=== PATIENT | female | born 1985 | race Caucasian/White ===

== ENCOUNTER 2016-06-29 08:51 | Emergency (ER) | payer MEDICAID, OTHER ==
[2016-06-29] MEDS ORDERED: Bacitracin Oint 15 GM Tube TOP STA (09:19)
[2016-06-29] MEDS ORDERED: Acetaminophen/HYDROcodone 325-5 MG Tab PO ONE (09:19)
--- NOTE | 2016-06-29 09:50 | EDM.PDOC ---
ED HPI BURN/SMOKE INHALATION - General Chief Complaint: Burn Stated Complaint: LEFT HAND BURN-FLAHERTY GREASE Time Seen by Provider: 06/29/16 08:56 Source of Information: Reports: Patient, RN notes reviewed, Significant Other ( Boyfriend) History Limitations: Reports: No limitations - History of Present Illness INITIAL COMMENTS - FREE TEXT/NARRATIVE: The patient states that she was attempting to poor hot flaherty grease into a glass jar that she was holding with her left hand, when some of the hot flaherty grease accidentally spilled over her left MCP joints and some fingers, arounf 08 :30 this morning. She presents with some non-blistering hicks to the dorsal and palmar aspects of her left hand. She is otherwise uninjured. - Related Data Allergies/ADRs: Allergies Allergy/AdvReac Type Severity Reaction Status Date / Time No Known Allergies Allergy Verified 06/29/16 08:59 Home Meds: Home Meds Hydrocodone/Acetaminophen [Whitehall 5-325 Tablet] 1 - 2 tab PO Q8H PRN #8 tablet [Rx] Propranolol [Inderal] 10 mg PO DAILY 06/29/16 [History] Venlafaxine [Effexor] 75 mg PO DAILY 06/29/16 [History] Past Medical History Psychiatric History: Reports: Anxiety - Past Surgical History HEENT Surgical History: Reports: Oral surgery ([place] teeth extraction) Female Surgical History: Reports: section (x 1) Social & Family History - Tobacco Use Smoking Status *Q: Current Every Day Smoker Years of Tobacco use: 1 Packs/Tins Daily: 0.2 - Alcohol Use Alcohol Use History: Yes Alcohol Use Frequency: Socially - Recreational Drug Use Recreational Drug Use: Yes Drug Use in Last 12 Months: No Recreational Drug Type: Reports: Methamphetamine Recreational Drug Use Frequency: Not Used In Over 6 Months - Living Situation & Occupation Living situation: Reports: single, with significant other (Boyfriend), with family (4 kids) Occupation: student ([employer]) ED ROS GENERAL - Review of Systems Review Of Systems: See Below Constitutional: Reports: no symptoms HEENT: Reports: No symptoms Respiratory: Reports: No Symptoms Cardiovascular: Reports: No symptoms Endocrine: Reports: no symptoms GI/Abdominal: Reports: No symptoms : Reports: no symptoms Musculoskeletal: Reports: no symptoms Skin: Reports: no symptoms Neurological: Reports: No Symptoms Psychiatric: Reports: No symptoms Hematologic/Lymphatic: Reports: no symptoms Immunologic: Reports: no symptoms ED EXAM, BURN/SMOKE INHALATION - Physical Exam Exam: See Below Exam Limited By: No limitations General Appearance: alert, WD/WN, mild distress Extremities: other (There is erythema and some swelling to the dorsal aspect of the left second finger, proximal phalanx and dorsal aspect of the left third PIP joint. Additional erythema and swelling to the palmar aspect of the second finger, proximal phalanx and slightly onto the middle phalanx, just distal to the PIP joint. Additional erythema without swelling to the palmar aspect of the left third finger. No blistering.) Course - Vital Signs Last Recorded V/S: Last Vital Signs Temp 36.8 C 06/29/16 09:01 Pulse 85 06/29/16 09:01 Resp 16 06/29/16 10:02 BP 105/80 06/29/16 10:02 Pulse Ox 96 06/29/16 10:02 - Orders/Labs/Meds Meds: Medications Discontinued Medications Generic Name Dose Route Start Last Admin Trade Name Amanda PRN Reason Stop Dose Admin Hydrocodone Bitart/Acetaminophen 2 tab 06/29/16 09:19 06/29/16 09:24 Whitehall 325-5 Mg PO 06/29/16 09:20 2 tab ONETIME ONE Administration Bacitracin 2 gm 06/29/16 09:19 06/29/16 09:25 Bacitracin Oint TOP 06/29/16 09:20 2 gm ONETIME STA Administration - Re-Assessments/Exams Free Text/Narrative Re-Assessment/Exam: 06/29/16 09:45 Clinically, the patient has suffered either superficial or superficial partial thickness hicks to her left hand and fingers. Her wounds were dressed with bacitracin ointment and Xeroform. The dressing should be changed daily. She received 2 tablets of Whitehall here in the ED, and I will e-prescribe some more. She will be discharged home with the bacitracin tube and some Xeroform. Departure - Departure Time of Disposition: 09:46 Disposition: Home, Self-Care 01 Condition: good Clinical Impression: Burn of hand, left, second degree Prescriptions: Hydrocodone/Acetaminophen [Whitehall 5-325 Tablet] 1 - 2 tab PO Q8H PRN #8 tablet PRN Reason: Pain (Severe 7-10) Instructions: Second-Degree Burn Referrals: Sandra Francois CHANGE MANAGEMENT COORDINATOR [Primary Care Provider] - Forms: ED Department Discharge Additional Instructions: You were seen in the emergency room after burning your left hand and fingers with hot flaherty grease. A dressing of bacitracin ointment and Xeroform was applied. Change this dressing daily, after you wash your hands. You may apply ice packs to the dressing, but do not get the dressing wet. Take [id number] ibuprofen 2-3 tablets (400-600 mg) every 8 hours, with food, as needed for pain. Take 1 to 2 tablets of the pain medicine Whitehall up to every 8 hours, as needed for pain not relieved by ibuprofen. If you take Whitehall, do not drive or operate heavy machinery. Whitehall will likely cause constipation, so consider taking a stool softener. Followup with your PCP, Elana Francois, as needed. If any other problems, please do not hesitate to return to the ER.
[2016-06-29 10:13] VITALS: BP 105/80
== END 2016-06-29 10:05 | disposition home or self-care (01) ==
LOC: JD.ED 08:51
DX: T23.202A Burn of second degree of left hand, unspecified site, initial encounter (principal); X12.XXXA Contact with other hot fluids, initial encounter; Y93.89 Activity, other specified; Z79.899 Other long term (current) drug therapy; F17.210 Nicotine dependence, cigarettes, uncomplicated; F41.9 Anxiety disorder, unspecified
CPT/HCPCS: 99283; A9270

== ENCOUNTER → 2019-07-03 | Day surgery (SDC) | payer BC ==
[~2019-07-03] MED LIST: Ketorolac 30 MG/ML SDV ONE; Lactated Ringers 1,000 ML IV SCH; Lidocaine 1% 4 ML ONE; Lidocaine 1% with EPINEPHrine 1:100,000 20 ML MDV ONE; Lidocaine 1%/Sod Bicarbonate in NS 8.4% 1 ML Syringe IDERM PRN; Midazolam 1 MG/ML 2 ML SDV ONE; Ondansetron 4 MG/2 ML SDV ONE; Propofol 200 MG/20 ML SDV ONE; Scopolamine 1.5 MG Transdermal Patch TOP PRN; Sodium Chloride 0.9% 10 ML Syringe FLUSH PRN; fentaNYL 100 MCG/2 ML SDV IVPUSH PRN; fentaNYL 250 MCG/5 ML SDV ONE
--- NOTE | 2019-07-03 09:33 | PCM.OPNOTE ---
- General Post-Op/Procedure Note Date of Surgery/Procedure: 07/03/19 Operative Procedure(s): Loop electroscurgical excision procedure Findings: Decreased Lugol's uptake at the 12 and 6 o'clock position with excision of the entirety of the transformation zone with a top-hat vision of the cervical canal. IUD strings were visualized but cut during the procedure in order to complete the procedure. Pre Op Diagnosis: STEVEN 2-3 on colposcopy Post-Op Diagnosis: Same Anesthesia Technique: MAC Primary Surgeon: Delta Flynn Anesthesia Provider: Ilan Hernández Pathology: Superior portion of cervical transformation zone, inferior portion of cervical transformation zone and Top-Hat portion of cervical canal Fluid Replacement, Intraop: 1,800 Output, Urine Amount: 0 EBL in mLs: 200 Complications: Unanticipated bleeding from arterial vessel in the cervix leading to increased blood loss Condition: Good Free Text/Narrative:: The patient was Procedure in detail: The patient was seen in the preoperative holding area and the consent forms were reviewed. Discussed that plan was for colposcopy with loop electrosurgical excision procedure with risks including bleeding, infection , injury to surrounding structures and possibly damage to IUD strings including possible cutting of the strings. Patient states understanding and was in agreement with the consent form. The patient was taken back to operating room #2 and placed in dorsal lithotomy position using yellowfin stirrups. She was given MAC anesthesia. The speculum was placed and suction tubing connected to the outlet on the speculum. The cervix was visualized with the IUD strings visualized at the 9 and 10 o'clock position. The cervix was cleansed using Lugol's iodine solution with decreased uptake of the Lugol's at the 12 and 6 o'clock position. One of the IUD strings was protected by placing it through the protective sheath of the spinal needle. A paracervical block was administered with use of 1% lidocaine with epinephrine at the 2, 4, 8 and 10 o'clock position on the base of the cervix. The loop electrode settings were set to 30 majano for both cut and coagulation. The loop electrode was then passed from the superior to midline portion of the cervix as far as the electrode could go until it hit the protective sheath of the spinal needle. This was repeated on the patient's left side of the cervix, right side of the cervix and then from the inferior to the midline portion. After multiple attempts to remove the cervical tissue it was unable to get a complete cut of the cervical portion with the protective spinal needle sheath in place. Decision was made to complete the procedure by cutting the IUD strings. The superior portion of the cervix and transformation zone was removed and sent for specimen. The inferior portion of the cervix and transformation zone was sent as an additional specimen. An additional Top-Hat was performed of the cervical canal due to the findings being present on the endocervical curettage on previous colposcopy. The surgical bed was then coagulated using the ball and blade electrode. During coagulation the settings were increased to 40 W for the cut and coagulation settings. On evaluation of the cervix there is continued amount of bleeding with more bleeding normal than anticipated and at the 11 o'clock position there was noted to be an arterial bleed that was coagulated using the blade electrode. Bleeding was stopped at this time and the surgical bed was hemostatic. The surgical bed was coated with Monsel solution for additional hemostasis. The procedure was completed at this time. The patient tolerated the procedure well. The patient was awoken and taken to the recovery room.
--- NOTE | 2019-07-03 09:55 | PCM.PREANE ---
Preanesthetic Assessment - Anesthesia/Transfusion/Family Hx Anesthesia History: Prior Anesthesia Without Reaction Family History of Anesthesia Reaction: No Intubation History: Unknown - Review of Systems General: No Symptoms Pulmonary: No Symptoms Cardiovascular: No Symptoms Gastrointestinal: No Symptoms Neurological: No Symptoms Other: Reports: None - Physical Assessment NPO Status Date: 07/02/19 NPO Status Time: 21:30 Vital Signs: Last Vital Signs Temp 96.9 F 07/03/19 09:40 Pulse 86 07/03/19 09:40 Resp 15 07/03/19 09:40 BP 110/79 07/03/19 09:40 Pulse Ox 100 07/03/19 09:40 Preoperative VSs at 07:12am 101/60, HR 67, RR 18, SpO2 97% Height: 1.5 m Weight: 71.849 kg ASA Class: 2 Mental Status: Alert & Oriented x3 Airway Class: Mallampati = 2 Dentition: Reports: Normal Dentition Thyro-Mental Finger Breadths: 3 Mouth Opening Finger Breadths: 3 ROM/Head Extension: Full Lungs: Clear to Auscultation, Normal Respiratory Effort Cardiovascular: Regular Rate, Regular Rhythm - Lab Values: Laboratory Last Values HCG, Qual Negative (NEGATIVE) 07/03/19 07:20 - Allergies Allergies/Adverse Reactions: Allergies Allergy/AdvReac Type Severity Reaction Status Date / Time No Known Allergies Allergy Verified 07/02/19 12:59 - Acknowledgements Anesthesia Type Planned: General Anesthesia, MAC Pt an Appropriate Candidate for the Planned Anesthesia: Yes Alternatives and Risks of Anesthesia Discussed w Pt/Guardian: Yes Pt/Guardian Understands and Agrees with Anesthesia Plan: Yes PreAnesthesia Questionnaire HEENT History: Reports: None Cardiovascular History: Reports: None Respiratory History: Reports: Other (See Below) Other Respiratory History: pain with deep inspiration Gastrointestinal History: Reports: None Genitourinary History: Reports: None MANAGER NET History: Reports: , Other (See Below) Other OB/BYN History: colposcopy, STEVEN I, STEVEN III, ASCUS, irregular menses, STD Musculoskeletal History: Reports: None Neurological History: Reports: None Psychiatric History: Reports: Anxiety, Depression Endocrine/Metabolic History: Reports: Obesity/BMI 30+ Hematologic History: Reports: None Immunologic History: Reports: None Oncologic (Cancer) History: Reports: None Dermatologic History: Reports: Other (See Below) Other Dermatologic History: skin mole - Past Surgical History Head Surgeries/Procedures: Reports: None HEENT Surgical History: Reports: Oral Surgery Cardiovascular Surgical History: Reports: None Respiratory Surgical History: Reports: None GI Surgical History: Reports: None Female Surgical History: Reports: Section Endocrine Surgical History: Reports: None Neurological Surgical History: Reports: None Musculoskeletal Surgical History: Reports: None Oncologic Surgical History: Reports: None Dermatological Surgical History: Reports: None - SUBSTANCE USE Smoking Status *Q: Current Every Day Smoker Recreational Drug Use History: No - HOME MEDS Home Medications: Home Meds LORazepam [Lorazepam] 0.5 mg PO Q8HR PRN 07/02/19 [History] Sertraline HCl 100 mg PO DAILY 07/02/19 [History] levonorgestreL [Mirena] 1 dose VAG ASDIRECTED 07/02/19 [History] - CURRENT (IN HOUSE) MEDS Current Meds: Current Medications Lactated Ringer's (Ringers, Lactated) 1,000 mls @ 125 mls/hr IV ASDIRECTED ISAAC Stop: 07/03/19 23:00 Last Admin: 07/03/19 07:56 Dose: 125 mls/hr Lidocaine/Sodium Bicarbonate (Buffered Lidocaine 1% In Ns 8.4%) 0.25 ml IDERM ONETIME PRN PRN Reason: Prior to IV Start Stop: 07/03/19 18:00 Last Admin: 07/03/19 07:55 Dose: 0.25 ml Scopolamine (Transderm-Scop) 1.5 mg TOP ONETIME PRN PRN Reason: PONV Stop: 07/03/19 18:00 Last Admin: 07/03/19 07:45 Dose: 1.5 mg Sodium Chloride (Saline Flush) 10 ml FLUSH ASDIRECTED PRN PRN Reason: Keep Vein Open Stop: 07/03/19 18:00 Discontinued Medications Fentanyl (Sublimaze) Confirm Administered Dose 250 mcg .ROUTE .STK-MED ONE Stop: 07/03/19 07:41 Lidocaine HCl (Xylocaine-Mpf 1%) Confirm Administered Dose 4 mls @ as directed .ROUTE .STK-MED ONE Stop: 07/03/19 07:41 Ketorolac Tromethamine (Toradol) Confirm Administered Dose 30 mg .ROUTE .STK- MED ONE Stop: 04/17/20 07:42 Lidocaine/Epinephrine (Xylocaine 1% With Epinephrine 1:100,000) Confirm Administered Dose 40 ml .ROUTE .STK-MED ONE Stop: 07/03/19 07:46 Midazolam HCl (Versed 1 Mg/Ml) Confirm Administered Dose 2 mg .ROUTE .STK-MED ONE Stop: 07/03/19 07:41 Midazolam HCl (Versed 1 Mg/Ml) Confirm Administered Dose 2 mg .ROUTE .STK-MED ONE Stop: 07/03/19 09:24 Ondansetron HCl (Zofran) Confirm Administered Dose 4 mg .ROUTE .STK-MED ONE Stop: 07/03/19 07:42 Propofol (Diprivan 20 Ml) Confirm Administered Dose 200 mg .ROUTE .STK-MED ONE Stop: 07/03/19 07:41 Propofol (Diprivan 20 Ml) Confirm Administered Dose 200 mg .ROUTE .STK-MED ONE Stop: 07/03/19 08:39
--- NOTE | 2019-07-03 09:57 | PCM.POSTAN ---
POST ANESTHESIA ASSESSMENT - MENTAL STATUS Mental Status: Confused - VITAL SIGNS Vital Signs: Last Vital Signs Temp 96.9 F 07/03/19 09:40 Pulse 86 07/03/19 09:40 Resp 15 07/03/19 09:40 BP 110/79 07/03/19 09:40 Pulse Ox 100 07/03/19 09:40 - RESPIRATORY Respiratory Status: Respiratory Rate WNL, Airway Patent, O2 Saturation Stable, Supplemental Oxygen - CARDIOVASCULAR CV Status: Pulse Rate WNL, Blood Pressure Stable - GASTROINTESTINAL GI Status: No Symptoms - PAIN Pain Score: 0 - POST OP HYDRATION Hydration Status: Adequate & Stable
[2019-07-03 10:09] VITALS: BP 120/80; PULSE 70
--- NOTE | 2019-07-03 11:42 | PCM48HPAN ---
Post Anesthesia Note - EVALUATION WITHIN 48HRS OF ANESTHETIC Vital Signs in Normal Range: Yes Patient Participated in Evaluation: Yes Respiratory Function Stable: Yes Airway Patent: Yes Cardiovascular Function Stable: Yes Hydration Status Stable: Yes Pain Control Satisfactory: Yes Nausea and Vomiting Control Satisfactory: Yes Mental Status Recovered: Yes Vital Signs: Last Vital Signs Temp 0955 F H 07/03/19 10:09 Pulse 70 07/03/19 10:09 Resp 19 07/03/19 10:09 BP 120/80 07/03/19 10:09 Pulse Ox 98 07/03/19 10:09
== END | disposition home or self-care (01) ==
LOC: JD.SDS 07:05
PROVIDERS: ATTEND Obstetrics & Gynecology
DX: N87.0 Mild cervical dysplasia (principal); E66.9 Obesity, unspecified; F32.9 Major depressive disorder, single episode, unspecified; F41.9 Anxiety disorder, unspecified; Z79.899 Other long term (current) drug therapy; Z87.891 Personal history of nicotine dependence; Z68.34 Body mass index [BMI] 34.0-34.9, adult; Z97.5 Presence of (intrauterine) contraceptive device
CPT/HCPCS: 36415; 57460; 84703; A9270; J1885; J2001; J2250; J2405; J2704; J3010; J7120; 00940